=== PATIENT | female | born 1990 | race Caucasian/White ===

== ENCOUNTER 2019-05-14 11:09 | Emergency (ER) | payer SELFPAY ==
[2019-05-14] MEDS ORDERED: LIDOCAINE 1% MPF 5 ML VIAL ONE (11:37)
[2019-05-14] MEDS ORDERED: LIDOCAINE 1% W/EPI 1:100,000 MDV 20 ML VIAL ONE (12:03)
[2019-05-14] MEDS ORDERED: HYDROCODONE/APAP 7.5/325 MG TAB ONE (12:03)
--- NOTE | 2019-05-14 12:27 | EDPHYS ---
Physician Documentation [facility] Name: Esperanza Lima Age: 29 yrs Sex: Female : 1990 Arrival Date: 05/14/2019 Time: 11:12 Bed 24 Private MD: None, None ED Physician Zion Fong HPI: 05/14 11:53 This 29 yrs old Female presents to ER via Ambulatory with complaints of vladimir Abscess. 11:53 The patient presents with an abscess of the groin and right femoral area, The patient vladimir presents with cellulitis of the groin and right femoral area. Description: erythematous, fluctuant, pointed. Onset: The symptoms/episode began/occurred 3 day(s) ago. Associated signs and symptoms: The patient has no apparent associated signs or symptoms. Modifying factors: the symptoms are alleviated by remaining still, the symptoms are aggravated by sitting, touching. The patient has experienced similar episodes in the past, multiple times. 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 - Social history:: Smoking status: Patient/guardian denies using tobacco. - Ebola Screening: : No symptoms or risks identified at this time. - Family history:: not pertinent. ROS: 11:53 Constitutional: Negative for fever, chills, and weight loss, Eyes: Negative for injury, vladimir pain, redness, and discharge, ENT: Negative for injury, pain, and discharge, Neck: Negative for injury, pain, and swelling, Cardiovascular: Negative for chest pain, palpitations, and edema, Respiratory: Negative for shortness of breath, cough, wheezing, and pleuritic chest pain, Abdomen/GI: Negative for abdominal pain, nausea, vomiting, diarrhea, and constipation, Back: Negative for injury and pain, : Negative for injury, bleeding, discharge, and swelling, MS/Extremity: Negative for injury and deformity, Neuro: Negative for headache, weakness, numbness, tingling, and seizure, Psych: Negative for depression, anxiety, suicide ideation, homicidal ideation, and hallucinations, Allergy/Immunology: Negative for hives, rash, and allergies, Endocrine: Negative for neck swelling, polydipsia, polyuria, polyphagia, and marked weight changes, Hematologic/Lymphatic: Negative for swollen nodes, abnormal bleeding, and unusual bruising. 11:53 Skin: Positive for abscess, erythema, swelling, of the groin and right femoral area. Exam: 11:53 Constitutional: This is a well developed, well nourished patient who is awake, alert, vladimir and in no acute distress. Head/Face: Normocephalic, atraumatic. Eyes: Pupils equal round and reactive to light, extra-ocular motions intact. Lids and lashes normal. Conjunctiva and sclera are non-icteric and not injected. Cornea within normal limits. Periorbital areas with no swelling, redness, or edema. ENT: Nares patent. No nasal discharge, no septal abnormalities noted. Tympanic membranes are normal and external auditory canals are clear. Oropharynx with no redness, swelling, or masses, exudates, or evidence of obstruction, uvula midline. Mucous membranes moist. Neck: Trachea midline, no thyromegaly or masses palpated, and no cervical lymphadenopathy. Supple, full range of motion without nuchal rigidity, or vertebral point tenderness. No Meningismus. Chest/axilla: Normal chest wall appearance and motion. Nontender with no deformity. No lesions are appreciated. Cardiovascular: Regular rate and rhythm with a normal S1 and S2. No gallops, murmurs, or rubs. Normal PMI, no JVD. No pulse deficits. Respiratory: Lungs have equal breath sounds bilaterally, clear to auscultation and percussion. No rales, rhonchi or wheezes noted. No increased work of breathing, no retractions or nasal flaring. Abdomen/GI: Soft, non-tender, with normal bowel sounds. No distension or tympany. No guarding or rebound. No evidence of tenderness throughout. Back: No spinal tenderness. No costovertebral tenderness. Full range of motion. MS/ Extremity: Pulses equal, no cyanosis. Neurovascular intact. Full, normal range of motion. Neuro: Awake and alert, GCS 15, oriented to person, place, time, and situation. Cranial nerves II-XII grossly intact. Motor strength 5/5 in all extremities. Sensory grossly intact. Cerebellar exam normal. Normal gait. Psych: Awake, alert, with orientation to person, place and time. Behavior, mood, and affect are within normal limits. 11:53 Skin: abscess, that is small, with fluctuance, with induration, with surrounding cellulitis, that is mild, that is moderate, cellulitis, that is mild, that is moderate, induration, that is moderate is noted. Vital Signs: 11:18 BP 133 / 92; Pulse 86; Resp 16; Temp 97.7; Pulse Ox 100% on R/A; Weight 58.97 kg; la1 Height 5 ft. 6 in. (167.64 cm); 13:07 BP 122 / 88; Pulse 79; Resp 17; Pulse Ox 100% on R/A; tw2 11:18 Body Mass Index 20.98 (58.97 kg, 167.64 cm) or1 Procedures: 11:57 I \T\ D: Incision and drainage was performed for an abscess of the right Prepped with [facility] Betadine, Anesthetized with 5 ml's 1% Lidocaine w/ Epi. Incised with #11 blade. Drained moderate amount Packed with iodoform gauze, Dressing: non-Adherent dressing, the patient tolerated the procedure well. MDM: 11:26 Patient medically screened. [facility] 11:53 Data reviewed: vital signs, nurses notes. [facility] 05/14 11:53 Order name: Wound Culture [facility] 05/14 12:28 Order name: Urine Dipstick--Ancillary (enter results) 05/14 11:53 Order name: Urine Dipstick-Ancillary (obtain specimen); Complete Time: 12:02 [facility] 05/14 12:28 Order name: Urine --Ancillary (enter results) 05/14 11:53 Order name: Urine Test (obtain specimen); Complete Time: 12:02 [facility] 05/14 11:53 Order name: Blood Glucose Level; Complete Time: 12:01 [facility] 05/14 11:53 Order name: Dressing - Wound; Complete Time: 13:07 [facility] 05/14 11:53 Order name: Gloves, Sterile; Complete Time: 12:02 [facility] 05/14 11:53 Order name: Setup Suture Tray; Complete Time: 12:01 [facility] Administered Medications: 12:05 Drug: [place] (7.5 mg-325 mg) 1 tabs Route: PO; tw2 12:08 Follow up: RASS 0 on administration at 1205 tw2 13:00 Follow up: Response: No adverse reaction; Pain is decreased; RASS: Alert and Calm (0) tw2 12:45 Drug: Lidocaine-Epinephrine -1%: (1:100,000) 5 ml {Note: by Dr. Fong.} Volume: 20 tw2 ml; Route: Infiltration; Point of Care Testing: Blood Glucose: 12:01 Blood Glucose: 82 mg/dL; tw2 Ranges: Critical Glucose Levels:Adult <50 mg/dl or >400 mg/dl <40 mg/dl or >180 mg/dl Disposition: 05/14/19 12:26 Discharged to Home. Impression: Cutaneous abscess of groin. - Condition is Stable. - Discharge Instructions: Skin Abscess, Cellulitis, Adult, Skin Abscess, [id number], Cellulitis, Adult, [id number]. - Prescriptions for Bactroban 2 % Topical Ointment - Apply to affected area 1 application by TOPICAL route every 12 hours; 30 gram. Tylenol- Codeine #3 300-30 mg Oral Tablet - take 2 tablets by ORAL route every 6 hours As needed; 26 tablet. Doxycycline Hyclate 100 mg Oral Tablet - take 1 tablet by ORAL route every 12 hours; 20 tablet. Bactrim DS 800- 160 mg Oral Tablet - take 1 tablet by ORAL route every 12 hours for 10 days; 20 tablet. - Medication Reconciliation Form, Thank You Letter, Antibiotic Education, Prescription Opioid Use form. - Follow up: Private Physician; When: 2 - 3 days; Reason: Recheck today's complaints, Continuance of care, Re-evaluation by your physician. Follow up: Gaston Eden MD; When: 2 - 3 days; Reason: Recheck today's complaints, Continuance of care, Re-evaluation by your physician. - Problem is new. - Symptoms have improved. Signatures: Dispatcher [employer] [facility] Zion Fong MD MD cha Attema, Lee RN RN la1 Yvonne Whalen RN RN tw2 Corrections: (The following items were deleted from the chart) 13:09 12:26 05/14/2019 12:26 Discharged to Home. Impression: Cutaneous abscess of groin. tw2 Condition is Stable. Discharge Instructions: Skin Abscess, Skin Abscess, [id number], Cellulitis, Adult, Cellulitis, Adult, [id number]. Prescriptions for Bactroban 2 % Topical Ointment - Apply to affected area 1 application by TOPICAL route every 12 hours; 30 gram, Tylenol-Codeine #3 300-30 mg Oral Tablet - take 2 tablets by ORAL route every 6 hours As needed; 26 tablet, Doxycycline Hyclate 100 mg Oral Tablet - take 1 tablet by ORAL route every 12 hours; 20 tablet, Bactrim DS 800-160 mg Oral Tablet - take 1 tablet by ORAL route every 12 hours for 10 days; 20 tablet. and Forms are Medication Reconciliation Form, Thank You Letter, Antibiotic Education, Prescription Opioid Use. Follow up: Private Physician; When: 2 - 3 days; Reason: Recheck today's complaints, Continuance of care, Re-evaluation by your physician. Follow up: Dr. Gaston Eden; When: 2 - 3 days; Reason: Recheck today's complaints, Continuance of care, Re-evaluation by your physician. Problem is new. Symptoms have improved. vladimir
--- NOTE | 2019-05-14 12:27 | ER ---
Nurse's Notes [facility] Name: Esperanza Lima Age: 29 yrs Sex: Female : 1990 Arrival Date: 05/14/2019 Time: 11:12 Bed 24 Private MD: None, None Diagnosis: Cutaneous abscess of groin Presentation: 05/14 11:19 Presenting complaint: Patient states: Abscess to right inguinal area for a few days. la1 Transition of care: patient was not received from another setting of care. Onset of symptoms was May 14, 2019. Risk Assessment: Do you want to hurt yourself or someone else? Patient reports no desire to harm self or others. Initial Sepsis Screen: Does the patient meet any 2 criteria? No. Patient's initial sepsis screen is negative. Does the patient have a suspected source of infection? No. Patient's initial sepsis screen is negative. Care prior to arrival: None. 11:19 Method Of Arrival: Ambulatory la1 11:19 Acuity: YOANNA 4 la1 Triage Assessment: 11:34 General: Appears in no apparent distress. Behavior is calm, cooperative, appropriate tw2 for age. Pain: Complains of pain in groin and right femoral area. EENT: No signs and/or symptoms were reported regarding the EENT system. Neuro: Level of Consciousness is awake, alert, obeys commands, Oriented to person, place, time, situation. Cardiovascular: Patient's skin is warm and dry. Respiratory: Airway is patent Respiratory effort is even, unlabored, Respiratory pattern is. GI: No signs and/or symptoms were reported involving the gastrointestinal system. : No signs and/or symptoms were reported regarding the genitourinary system. Derm: Abscess located on groin and right femoral area is quarter sized, is red, is raised. Musculoskeletal: Range of motion: intact in all extremities. 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 - Social history:: Smoking status: Patient/guardian denies using tobacco. - Ebola Screening: : No symptoms or risks identified at this time. - Family history:: not pertinent. Screenin:33 Abuse screen: Denies threats or abuse. Nutritional screening: No deficits noted. tw2 Tuberculosis screening: No symptoms or risk factors identified. Fall Risk None identified. Assessment: 11:35 Reassessment: see triage assessment. tw2 13:07 Reassessment: Patient appears in no apparent distress at this time. Patient and/or tw2 family updated on plan of care and expected duration. Pain level reassessed. Patient is alert, oriented x 3, equal unlabored respirations, skin warm/dry/pink. Patient states feeling better. Patient states symptoms have improved. Vital Signs: 11:18 BP 133 / 92; Pulse 86; Resp 16; Temp 97.7; Pulse Ox 100% on R/A; Weight 58.97 kg; la1 Height 5 ft. 6 in. (167.64 cm); 13:07 BP 122 / 88; Pulse 79; Resp 17; Pulse Ox 100% on R/A; tw2 11:18 Body Mass Index 20.98 (58.97 kg, 167.64 cm) la1 ED Course: 11:12 Patient arrived in ED. mr 11:12 None, None is Private Physician. mr 11:18 Arm band placed on right wrist. la1 11:19 Triage completed. la1 11:26 Zion Fong MD is Attending Physician. vladimir 11:27 Yvonne Whalen, LILIAN is Primary Nurse. tw2 11:27 Placed in gown. Bed in low position. Call light in reach. tw2 12:26 Gaston Eden MD is Referral Physician. vladimir 12:33 Awaiting: I\T\D px by provider at this time PRIOR to discharge. tw2 12:45 Assist provider with I \T\ D: of an abscess on right groin Set up I\T\D tray. Performed by tw 2 Zion Fong MD Culture sent to lab. Wound packed. iodoform gauze, Dressing with Neosporin and 4X4s, tape Patient tolerated well. Patient did not have IV access during this emergency room visit. Administered Medications: 12:05 Drug: [place] (7.5 mg-325 mg) 1 tabs Route: PO; tw2 12:08 Follow up: RASS 0 on administration at 1205 tw2 13:00 Follow up: Response: No adverse reaction; Pain is decreased; RASS: Alert and Calm (0) tw2 12:45 Drug: Lidocaine-Epinephrine -1%: (1:100,000) 5 ml {Note: by Dr. Fong.} Volume: 20 tw2 ml; Route: Infiltration; Point of Care Testing: Blood Glucose: 12:01 Blood Glucose: 82 mg/dL; tw2 Ranges: Intake: Outcome: 12:26 Discharge ordered by MD. gilbert 13:08 Discharged to home ambulatory. tw2 13:08 Condition: stable 13:08 Discharge instructions given to patient, Instructed on discharge instructions, follow up and referral plans. no drinking with medication, no driving heavy equipment, medication usage, wound care, Demonstrated understanding of instructions, follow-up care, medications, wound care, Prescriptions given X 4. 13:09 Patient left the ED. tw2 Signatures: Zion Fong MD MD cha Rivera, Mary mr Attema, Lee, RN RN la1 Yvonne Whalen RN RN tw2
[2019-05-14 12:58] LABS: Urine Blood 1+ (NEG); Urine Glucose NEGATIVE (NEG); Urine Protein NEGATIVE (NEG); Urine Specific Gravity 1.015 (1.005-1.030)
== END 2019-05-14 13:09 | disposition home or self-care (01) ==
LOC: ER 11:09
PROC: 0J9C0ZZ Drainage of Pelvic Region Subcutaneous Tissue and Fascia, Open Approach (ICD-10-PCS; principal; 2019-05-14)
DX: L02.214 Cutaneous abscess of groin (principal)
CPT/HCPCS: 81003; 81025; 82962; 87070; 87205; 99284